=== PATIENT | male | born 2000 | race Hispanic/Latino ===

== ENCOUNTER 2019-10-06 23:24 | Emergency (ER) | payer SELFPAY ==
[~2019-10-06] VITALS: Ht 175.3 cm; Wt 59.0 kg
[2019-10-06] MEDS ORDERED: ONDANSETRON HCL INJ 2MG/ML 2ML 2 MG/ML VIAL IV STA (23:50)
[2019-10-06] MEDS ORDERED: ACETAMINOPHEN 325 MG TAB PO STA (23:50)
--- NOTE | 2019-10-06 23:58 | Emergency Department Note ---
History of Present Illnes History of Present Illness Chief Complaint: Respiratory cough and congestion for 1 week. Temp of 102 F today and low grade all week History of Present Illness This is a 19 year old male . 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 Any updates have been documented here. Past Medical History Recent Fever: Yes Clinical Suspicion of Infectio: Yes New/Unexplained Change in Ment: No Past Medical History: None Other Medical History: INSOMNIA ANXIETY Past Surgical History: None Other Surgery: EAR TUBES Social History Smoking Cessation: Never Smoker Alcohol Use: None Any Illegal Drug Use: No Physically hurt or threatened: No Other Last Tetanus: UNKNOWN Any Pre-Existing Lines (PICC,: No Is patient up to date on immun: No Review of Systems Review of Systems Constitutional: Reports chills, Reports fever EENTM: Reports throat pain, Reports throat swelling Cardiovascular: Reports no symptoms Respiratory: Reports chest congestion, Reports cough Gastrointestinal: Reports diarrhea, Reports nausea, Reports vomiting Musculoskeletal: Reports muscle pain Integumentary: Reports no symptoms Neurological: Reports no symptoms Psychological: Reports no symptoms Endocrine: Reports no symptoms Hematological/Lymphatic: Reports no symptoms Review of other systems: All other systems negative Physical Exam Related Data Allergies: Coded Allergies: amoxicillin (Verified Allergy, Unknown, UNK REACTION, 09/16/16) Vital signs reviewed: Yes Physical Exam CONSTITUTIONAL Constitutional: Present well-developed, Present well-nourished HENT HENT: Present normocephalic, Present atraumatic, Present pharynx abnormal, Present erythema EYES Eyes: Reports PERRL, Reports conjunctivae normal, Reports EOM normal, Reports lids normal NECK Neck: Present ROM normal, Present supple PULMONARY Pulmonary: Present effort normal, Present breath sounds normal CARDIOVASCULAR Cardiovascular: Present heart sounds normal, Present intact distal pulses, Present capillary refill normal, Present normal rate GASTROINTESTINAL Abdominal: Present soft, Present nontender, Present bowel sounds normal GENITOURINARY Genitourinary: Present exam deferred SKIN Skin: Present warm, Present dry MUSCULOSKELETAL Musculoskeletal: Present ROM normal, Present edema NEUROLOGICAL Neurological: Present alert, Present oriented x 3, Present DTRs normal, Present no gross motor or sensory deficits PSYCHOLOGICAL Psychological: Present mood/affect normal, Present behavior normal, Present thought content normal, Present judgement normal Results Laboratory Laboratory flu strep neg covid pending cbc WNL elct unremarkable mild hypokalemia lactic acid wnl Imaging Imaging results reviewed: Yes Impressions chest xray negative Assessment & Plan Medical Decision Making MDM febrile illness with gastroenteritis bronchitis . poss of covid high. Results pending Assessment & Plan Final Impression: (1) Gastroenteritis (2) Bronchitis Home Meds Active Scripts Doxycycline Hyclate (DOXYCYCLINE HYCLATE) 100 Mg Capsule, 100 MG PO DAILY for bronchitis for 14 Days, CAP 0 Refills Prov:KASSIDY JHAVERI MD 10/07/19 Ondansetron Hcl* (ZOFRAN*) 4 Mg Tablet, 4 MG SL Q6H PRN for NAUSEA, #14 MG 0 Refills Prov:KASSIDY JHAVERI MD 10/07/19 Benzonatate (TESSALON PERLE) 100 Mg Capsule, 100 MG PO TID PRN for cough for 7 Days, #20 0 Refills Prov:KASSIDY JHAVERI MD 10/07/19 Discontinued Scripts Levofloxacin (LEVAQUIN) 500 Mg Tablet, 500 MG PO DAILY for cough for 7 Days, #10 TAB 0 Refills Prov:KASSIDY JHAVERI MD 10/07/19 Medications in the ED Acetaminophen 650 mg ONCE STAT PO ; Start 10/06/19 at 23:50; Stop 10/06/19 at 23:51; Status UNV Ondansetron HCl 4 mg NOW STAT IV ; Start 10/06/19 at 23:50; Stop 10/06/19 at 23:51; Status UNV Sodium Chloride 1,000 ml @ 1,000 mls/hr Q1H IV ; Start 10/07/19 at 00:00; Stop 11/06/19 at 00:00; Status UNV KASSIDY JHAVERI MD Oct 06, 2019 23:58
[2019-10-07] MEDS ORDERED: SODIUM CHLORIDE 0.9% 1000ML 1,000 ML IV SCH
--- NOTE | 2019-10-07 00:39 | Diagnostic Imaging Report ---
EXAMINATION: CXR 2 VIEW - HOPD INDICATION: ^cough ^[id number] ^[id number] ^N COMPARISON: None FINDINGS: TUBES and LINES: None. LUNGS: Lungs are well inflated. Lungs are clear. There is no evidence of pneumonia or pulmonary edema. PLEURA: No pleural effusion or pneumothorax. HEART AND MEDIASTINUM: The cardiomediastinal silhouette is unremarkable. BONES AND SOFT TISSUES: No acute osseous lesion. Soft tissues are unremarkable. UPPER ABDOMEN: No free air under the diaphragm. IMPRESSION: No acute thoracic radiographic abnormality. Signed by: Tremaine Christian MD on 10/07/2019 12:36 AM
[2019-10-07] MEDS ORDERED: ACETAMINOPHEN 325 MG TAB ONE (00:47)
[2019-10-07] MEDS ORDERED: ONDANSETRON HCL INJ 2MG/ML 2ML 2 MG/ML VIAL ONE (00:47)
[2019-10-07] MEDS ORDERED: SODIUM CHLORIDE 0.9% 1000ML 1,000 ML ONE ×2 (00:48→00:53)
[2019-10-07] MEDS ORDERED: ZOFRAN4 MG SL (01:03)
[2019-10-07] MEDS ORDERED: LEVAQUIN500 MG PO (01:03)
[2019-10-07] MEDS ORDERED: TESSALON PERLE100 MG PO (01:03)
[2019-10-07] MEDS ORDERED: DOXYCYCLINE HY100 MG PO (01:05)
[2019-10-07] MEDS ORDERED: ACETAMINOPHEN650 MG RC (01:12)
--- NOTE | 2019-10-07 01:25 | NUR ---
DC'D IVSL WITHOUT DIFF. NO REDNESS/SWELLING/BLEEDING TO SITE. CATH INTACT.
[2019-10-07 01:37] VITALS: BP 120/60
== END 2019-10-07 01:37 | disposition home or self-care (01) ==
LOC: FSED 23:30
DX: R50.9 Fever, unspecified (principal); J40 Bronchitis, not specified as acute or chronic; K52.9 Noninfective gastroenteritis and colitis, unspecified; R05 Cough; F41.9 Anxiety disorder, unspecified; G47.00 Insomnia, unspecified
CPT/HCPCS: 71046; 80048; 80076; 85025; 87040; 87635; 96374; 99283; J2405; J7030